=== PATIENT | female | born 1945 ===

== ENCOUNTER 2018-08-16 10:24 | Outpatient (CLI) | payer OTHER ==
[~2018-08-16] VITALS: Ht 152.4 cm; Wt 63.5 kg
== END 2018-08-16 10:40 | disposition home or self-care (01) ==
LOC: OFIC 805 10:24
DX: J31.0 Chronic rhinitis (principal); J34.2 Deviated nasal septum; K21.9 Gastro-esophageal reflux disease without esophagitis; J31.2 Chronic pharyngitis; J34.3 Hypertrophy of nasal turbinates

== ENCOUNTER 2018-09-27 10:47 | Outpatient (CLI) | payer OTHER | END 2018-09-27 10:53 | disposition home or self-care (01) | LOC: LAB 10:47 | DX: E11.9 Type 2 diabetes mellitus without complications (principal); D64.89 Other specified anemias ==

== ENCOUNTER 2019-06-13 08:52 | Outpatient (CLI) | payer OTHER | END 2019-06-13 08:58 | disposition home or self-care (01) | LOC: LAB 08:52 | DX: E11.9 Type 2 diabetes mellitus without complications (principal); I10 Essential (primary) hypertension; E03.8 Other specified hypothyroidism; E78.2 Mixed hyperlipidemia ==

== ENCOUNTER 2022-06-13 10:23 | Outpatient (CLI) | payer OTHER | END 2022-06-13 10:34 | disposition home or self-care (01) | LOC: LAB 10:23 | DX: D55.0 Anemia due to glucose-6-phosphate dehydrogenase [G6PD] deficiency (principal); N39.0 Urinary tract infection, site not specified; E03.9 Hypothyroidism, unspecified; D50.8 Other iron deficiency anemias ==